=== PATIENT | female | born 1955 | race Asian ===

== ENCOUNTER 2018-10-03 11:10 | Emergency (ER) | payer MEDICARE ==
[~2018-10-03] VITALS: Ht 149.9 cm; Wt 53.6 kg
[~2018-10-03 11:10] MED LIST: LISI-660 PO; METO25 PO
[2018-10-03] MEDS ORDERED: ASPI-556 PO (11:28)
[2018-10-03] MEDS ORDERED: GLIP2.5ER PO (11:28)
[2018-10-03] MEDS ORDERED: ATOR20TA86 PO (11:28)
[2018-10-03 11:29] LABS: GLUCOSE,POINT OF CARE 118 MG/DL (70-110)
[2018-10-03] MEDS ORDERED: ASPIRIN 81 MG CHEWABLE TABLET PO ONE ×2 (12:30→13:00)
[2018-10-03 12:34] LABS: BASOPHILS % (AUTO) 0.9 % (0.0-2.0); EOSINOPHILS % (AUTO) 1.9 % (1.0-6.0); HEMATOCRIT 41.1 % (36-46); HEMOGLOBIN 13.7 g/dL (12.0-16.0); LYMPHOCYTES # (AUTO) 1.9 K/uL (1.0-4.8); LYMPHOCYTES % (AUTO) 39.8 % (22.0-44.0); MEAN CORPUSCULAR HEMOGLOBIN 28.6 pg (26.0-34.0); MEAN CORPUSCULAR HGB CONC 33.2 G/dL (31.0-37.0); MEAN CORPUSCULAR VOLUME 86 fL (80-100); MONOCYTES # (AUTO) 0.2 K/uL (0.1-1.0); MONOCYTES % (AUTO) 4.2 % (2.0-9.0); NEUTROPHILS # (AUTO) 2.6 K/uL (1.8-7.7); NEUTROPHILS % (AUTO) 53.2 % (40.0-70.0); PLATELET COUNT (AUTO) 331 K/uL (150-450); RED BLOOD CELL COUNT(AUTO) 4.77 MIL/uL (4.00-5.20); RED CELL DISTRIBUTION WIDTH 13.1 % (11.5-14.5)
[2018-10-03 12:53] LABS: ANION GAP 10 mmol/L (8-16); CALCIUM, TOTAL 9.3 mg/dL (8.8-10.5); CARBON DIOXIDE 29 mmol/L (22-29); CHLORIDE 102 mmol/L (98-107); CREATININE 0.53 mg/dL (0.60-1.30); GLOMERULAR FILTR. RATE CALC > 60 mL/min (>60); GLUCOSE,RANDOM 95 mg/dL (70-110); POTASSIUM 3.8 mmol/L (3.5-5.1); SODIUM SERUM 141 mmol/L (136-145); UREA NITROGEN, BLOOD 13 mg/dL (7-18)
[2018-10-03 13:01] LABS: B-TYPE NATRIURETIC PEPTIDE 70 pg/mL (0-100)
[2018-10-03 13:18] LABS: ALANINE AMINOTRANSFERASE 47 U/L (12-78); ALBUMIN 3.9 g/dL (3.4-5.0); ALKALINE PHOSPHATASE 77 U/L (46-116); ASPARTATE AMINOTRANSFERASE 25 U/L (15-37); BILIRUBIN,TOTAL 0.3 mg/dL (0.1-1.0); CREATINE KINASE, TOTAL ONLY 75 U/L (26-192); TOTAL PROTEIN, SERUM 7.5 g/dL (6.4-8.2)
[2018-10-03 14:45] VITALS: BP 146/88
== END 2018-10-03 15:17 | disposition home or self-care (01) ==
LOC: EMS 11:12
DX: R10.13 Epigastric pain (principal); R07.89 Other chest pain; R14.2 Eructation; I11.9 Hypertensive heart disease without heart failure; Z95.1 Presence of aortocoronary bypass graft; Z85.3 Personal history of malignant neoplasm of breast; Z79.82 Long term (current) use of aspirin; Z79.899 Other long term (current) drug therapy
CPT/HCPCS: 93005